=== PATIENT | male | born 1995 | race Caucasian/White ===

== ENCOUNTER 2020-10-28 20:24 | Emergency (ER) | payer MEDICAID, OTHER ==
[~2020-10-28] VITALS: Ht 160 cm; Wt 115.7 kg
[2020-10-28 20:29] VITALS: BP 135/87
--- NOTE | 2020-10-28 20:39 | NUR ---
PT TAKEN TO BED 3
--- NOTE | 2020-10-28 20:41 | NUR ---
25 Y/O MALE BIB SELF FOR AN INGROWN TOENAIL ON THE RIGHT BIG TOE X 3DAYS. PATIENT STATES "I'VE BEEN TRYING TO POKE AT IT AND TRIED TAKING IT OUT. I COULDN'T STAND IT ANY MORE SO I HAD TO COME TO THE HOSPITAL". PAIN IS A 6/10 ACUTE, SHARP PAIN UPON MOVEMENT AND IS WORSENED WHEN PATIENT WALKS. SWELLING AND REDNESS AROUND THE BIG TOE; NO BLEEDING NOTED. PATIENT IS ABLE TO AMBULATE PMH: NONE ALLERGIES:NONE MEDICATIONS: NONE
--- NOTE | 2020-10-28 20:41 | NUR ---
Dr. Saunders examining patient.
[2020-10-28] MEDS ORDERED: BACI1PAC6 TP (20:59)
[2020-10-28] MEDS ORDERED: CEPH-588 PO (20:59)
[2020-10-28 21:11] VITALS: BP 135/87
--- NOTE | 2020-10-28 21:11 | NUR ---
Patient discharged with v/s stable. Written and verbal after care instructions given and explained. Patient alert, oriented and verbalized understanding of instructions. Ambulatory with steady gait. All questions addressed prior to discharge. ID band removed. Patient advised to follow up with PMD. Rx of BACITRACIN AND KEFLEX given. Patient educated on indication of medication including possible reaction and side effects. Opportunity to ask questions provided and answered.
== END 2020-10-28 21:11 | disposition home or self-care (01) ==
LOC: MED 20:24
DX: L03.031 Cellulitis of right toe (principal)
CPT/HCPCS: 99283

== ENCOUNTER 2020-11-23 17:14 | Emergency (ER) | payer MEDICAID ==
[~2020-11-23] VITALS: Ht 165.1 cm; Wt 113.4 kg
[~2020-11-23 17:14] MED LIST: BACI1PAC6 TP; CEPH-588 PO
[2020-11-23 17:20] VITALS: BP 158/78
--- NOTE | 2020-11-23 17:25 | NUR ---
25 Y/O MALE C/O INGROWN TOENAIL TO RIGHT BIG TOE X2-3 WEEKS. PT STATES HE WAS SEEN AT [facility] 2 WKS AGO FOR SAME ISSUE AND WAS GIVEN BACTRIM BUT THE PAIN AND SWELLING HAS INCREASED. PT DENIES PAIN AT THE MOMENT BUT STATES THAT IT HURTS WHEN WALKING. PT STATED THAT THERE IS WHITE PUS DISCHARGING FROM TOE. PT DENIES TAKING ANYTHING FOR PAIN BUT SOAKED HIS TOE IN WARM SALT WATER DAILY WITH NO IMPROVEMENT. SWELLING AND REDDNESS NOTED, CAP REFILL <3 SECONDS, PEDAL PULSES +2. PT DENIES N/V/FEVER. PT A/O X4 WITH EVEN AND UNLABORED RESPIRATIONS MEDHX: DENIES NKDA
[2020-11-23] MEDS ORDERED: LIDOCAINE 2% 1000 MG/50 ML VIAL INJ ONE (17:30)
--- NOTE | 2020-11-23 17:40 | NUR ---
DR STRATTON AT BEDSIDE FOR PROCEDURE
[2020-11-23] MEDS ORDERED: BACITRACIN OINT 500 UNITS/GM PKT TP ONE ×2 (17:58→18:00)
[2020-11-23] MEDS ORDERED: CEPH-588 PO (18:08)
[2020-11-23] MEDS ORDERED: SULF-59 PO (18:08)
[2020-11-23] MEDS ORDERED: CHLO118S1 TOP (18:08)
[2020-11-23] MEDS ORDERED: MUPI1OIN TP (18:08)
[2020-11-23] MEDS ORDERED: ACET-9527 PO (18:10)
[2020-11-23] MEDS ORDERED: IBUP-2213 PO (18:10)
--- NOTE | 2020-11-23 18:10 | NUR ---
APPLIED BACITRACIN TO PT WOUND AND DRESSED WITH BANDAID
[2020-11-23 18:22] VITALS: BP 158/78
--- NOTE | 2020-11-23 18:23 | NUR ---
Patient discharged with v/s stable. Written and verbal after care instructions given and explained. Patient alert, oriented and verbalized understanding of instructions. Ambulatory with steady gait. All questions addressed prior to discharge. ID band removed. Patient advised to follow up with PMD. Rx of NORCO, KEFLEX, CHLORHEXIDINE GLUCONATE, IBUPROFEN, BACTRIM, AND MUPIROCIN given. Patient educated on indication of medication including possible reaction and side effects. Opportunity to ask questions provided and answered.
== END 2020-11-23 18:23 | disposition home or self-care (01) ==
LOC: MED 17:14
DX: L60.0 Ingrowing nail (principal); Z79.899 Other long term (current) drug therapy
CPT/HCPCS: 11730; 99284; J2001